=== PATIENT | female | born 1960 | race Native Hawaiian/Other Pacific Islander ===

== ENCOUNTER 2017-04-06 10:57 | Outpatient (CLI) | payer OTHER ==
--- NOTE | 2017-04-07 09:51 | Ultrasound Report ---
ULTRASOUND ABDOMEN COMPLETE: Technique: Transabdominal ultrasound with color Doppler interrogation. History: abdominal pain, liver cyst. Findings: There are numerous small and large cysts scattered throughout the liver parenchyma. The largest cyst measures 10 cm and the left hepatic lobe. No solid liver mass or surface nodularity is appreciated. The gallbladder dimensions are within normal limits without intraluminal stone, wall thickening, or pericholecystic fluid. The CBD is normal caliber. The visualized portions of the pancreas including the head and proximal body are within normal limits. The right kidney measures 10.6 cm. The left kidney measures 10.3 cm. There are a few scattered small simple cysts in the right kidney. No renal mass, large calculus or hydronephrosis. The spleen and aorta are within normal limits. No aneurysmal dilatation is noted. No ascites. The bladder is unremarkable. IMPRESSION: Numerous liver cysts. No suspicious liver mass is identified. Simple right renal cysts. No biliary abnormality appreciated.
== END 2017-04-06 10:58 | disposition home or self-care (01) ==
LOC: US 10:57
PROVIDERS: ATTEND Internal Medicine Gastroenterology
DX: N28.1 Cyst of kidney, acquired (principal); K76.89 Other specified diseases of liver; Q44.6 Cystic disease of liver; R93.3 Abnormal findings on diagnostic imaging of other parts of digestive tract
CPT/HCPCS: 76700

== ENCOUNTER 2017-04-16 11:38 | Day surgery (SDC) | payer OTHER ==
[2017-04-16] MEDS ORDERED: XYLOCAINE MPF 2% ONE (13:00)
[2017-04-16] MEDS ORDERED: NACL 0.9% 1000 ML 1,000 ML IV SCH (13:00)
--- NOTE | 2017-04-16 13:19 | Anesthesia Consultation ---
Anesthesia Consult and Med Hx Date of service: 04/16/17 - Airway Anesthetic Teeth Evaluation: Good ROM Head & Neck: Adequate Mental/Hyoid Distance: Adequate Mallampati Class: Class II Intubation Access Assessment: Probably Good - Pulmonary Exam CTA: Yes - Cardiac Exam Cardiac Exam: RRR - Pre-Operative Health Status ASA Pre-Surgery Classification: ASA2 Proposed Anesthetic Plan: MAC - Pulmonary Hx Smoking: Yes (QUIT 2006) Hx Pneumonia: Yes (12/2014) - Cardiovascular System Hx Hypertension: Yes (15YRS) Hx Cardia Arrhythmia: No - Central Nervous System Hx Neuromuscular Disorder: No Hx Seizures: No CVA: No Hx Psychiatric Problems: Yes (Bipolar D/O, Anxiety) - Gastrointestinal Hx Gastroesophageal Reflux Disease: Yes (Diet related) - Endocrine Hx Liver Disease: Yes (liver cyst) Hx Insulin Dependent Diabetes: No Hx Non-Insulin Dependent Diabetes: No Hx Thyroid Disease: No - Other Systems Hx Cancer: No
--- NOTE | 2017-04-16 13:19 | Anesthesia Day of Surgery ---
Anesthesia Day of Surgery - Day of Surgery Patient Examined: Yes Patient H&P Reviewed: Yes Patient is NPO: Yes
[2017-04-16] MEDS ORDERED: DIPRIVAN 10 MG/ML IV ONE ×2 (14:13)
[2017-04-16] MEDS ORDERED: WATER FOR IRRIG STERILE IR ONE (15:02)
--- NOTE | 2017-04-16 15:02 | Post Anesthesia Evaluation ---
- Post Anesthesia Evaluation Patient Participated: Yes Airway Patent: Yes Stable Respiratory Function: Yes Nausea/Vomiting: No Temp > 96.8F: Yes Pain Manageable: Yes Adequeate Hydration: Yes Anesthesia Complications: No Block Receding Appropriately: Not Applicable Patient on Ventilator: No
--- NOTE | 2017-04-16 15:21 | Discharge Summary ---
Short Stay Discharge Plan Activity: advance as tolerated Weight Bearing Status: Weight Bear as Tolerated Diet: regular Follow up with: ORLANDO SMITH MD [Primary Care Provider] - 7 Days
--- NOTE | 2017-04-16 15:31 | Operative Report ---
Operative Report Operative Report: Date of procedure: 04/16/2017 Procedure: Esophagogastroduodenoscopy multiple mucosal biopsies. Attending physician: Shabbir Kellogg MD Replanting Machine Crew: Shabbir Kellogg MD Indication: Patient is a 57-year-old female who presents with history of gastroesophageal reflux disease with recurrent indigestion and heartburn. Patient also has a history of Sands's esophagus and had an upper endoscopy a little over 2 years ago. This endoscopy is done given patient's symptoms to assess her and also for surveillance of the patient's Sands's esophagus. Consent: Informed consent was obtained after advising the patient and family regarding nature of this procedure, its indications, potential benefits as well as possible complications including but not limited to bleeding perforation and adverse reaction to medication, infection as well as other cardiopulmonary complications. An informed written and verbal consent was then obtained after due opportunity was provided for questions and answers. Monitoring: Patient was monitored continuously with pulse oximetry and electrocardiographic recordings as well as blood pressure recordings. Vital signs remained stable throughout this procedure with no untoward events. Preoperative assessment: Patient was assessed immediately prior to this procedure for capacity to tolerate monitored anesthesia care and moderate sedation as well as general anesthesia. Patient's ASA classification is 2, Mallampati class is 2, Hyomental distance is 3. Instrument: MathZeen video endoscope Medications: Propofol given intravenously in divided doses. For details please refer to anesthesia records. Description of procedure: Patient was placed in the left lateral decubitus position after achieving sedation, the endoscope was introduced into the esophagus under direct vision. It was then advanced beyond the esophagus into the stomach and then beyond the stomach into the duodenum and to the second portion of the duodenum. It was subsequently withdrawn with careful inspection of all mucosal surfaces with the following findings. Findings: The Z line was at 37 cm. It was irregular. Patient had a short segment Sands's esophagus with a Lip of salmon pink mucosa projecting about 2 cm above the gastroesophageal junction. Several biopsies of this were obtained for histopathology. There was erythema and erosions seen in the gastric antrum and body. Biopsies obtained from the antrum for histopathology. The duodenum was normal to second portion. Impression: Irregular Z line. Short segment Sands's esophagus status post biopsies. Gastric antral erythema with erosions. Plan: Continue treatment with high-dose proton pump inhibitors next and follow pathology report to rule out dysplasia in the Sands's segment and also to rule out gastritis from the gastric antral biopsies. Maintain antireflux measures. Additional steps were taken in outpatient follow-up.
[2017-04-16 15:52] VITALS: BP 117/74
== END 2017-04-16 11:39 | disposition home or self-care (01) ==
LOC: GIO 11:38
PROVIDERS: ATTEND Internal Medicine Gastroenterology
DX: K22.70 Barrett's esophagus without dysplasia (principal); K22.8 Other specified diseases of esophagus; K29.50 Unspecified chronic gastritis without bleeding; K31.7 Polyp of stomach and duodenum; I10 Essential (primary) hypertension; F31.9 Bipolar disorder, unspecified; K21.9 Gastro-esophageal reflux disease without esophagitis; Z87.19 Personal history of other diseases of the digestive system
CPT/HCPCS: 43239; 88305; 88342; J2704; J7030

== ENCOUNTER 2017-05-24 09:45 | Day surgery (SDC) | payer OTHER ==
[~2017-05-24 09:45] MED LIST: ANCEF/STERILE WATER 2 GM/20 ML IV NR; HEPARIN SUB-Q NR; NACL 0.9% 1000 ML 1,000 ML IV SCH; PEPCID PO NR; VERSED IV NR
[2017-05-24] MEDS ORDERED: NACL BACTERIOSTATIC INFILTRATI ONE (11:31)
[2017-05-24] MEDS ORDERED: MARCAINE-EPI 0.25%-1:200,000 INFILTRATI ONE ×2 (11:35→13:02)
--- NOTE | 2017-05-24 12:08 | Anesthesia Consultation ---
Anesthesia Consult and Med Hx Date of service: 05/24/17 - Airway Anesthetic Teeth Evaluation: Good, Chipped (top front) ROM Head & Neck: Adequate Mental/Hyoid Distance: Adequate Mallampati Class: Class II Intubation Access Assessment: Probably Good - Pulmonary Exam CTA: Yes - Cardiac Exam Cardiac Exam: RRR - Pre-Operative Health Status ASA Pre-Surgery Classification: ASA3 Proposed Anesthetic Plan: General - Pulmonary Hx Smoking: Yes (QUIT 2006) Hx Pneumonia: Yes (12/2014) - Cardiovascular System Hx Hypertension: Yes (15YRS) Hx Cardia Arrhythmia: No - Central Nervous System Hx Neuromuscular Disorder: No Hx Seizures: No CVA: No Hx Psychiatric Problems: Yes (Bipolar D/O, Anxiety) - Gastrointestinal Hx Gastroesophageal Reflux Disease: Yes (Diet related) - Endocrine Hx Renal Disease: Yes (Polycystic Kidney Dz; Stage II CKD) Hx Liver Disease: Yes (liver cyst) Hx Insulin Dependent Diabetes: No Hx Non-Insulin Dependent Diabetes: No Hx Thyroid Disease: No - Other Systems Hx Cancer: No
--- NOTE | 2017-05-24 12:08 | Anesthesia Day of Surgery ---
Anesthesia Day of Surgery - Day of Surgery Patient Examined: Yes Patient H&P Reviewed: Yes Patient is NPO: Yes
[2017-05-24] MEDS ORDERED: ZOFRAN IV PRN ×2 (12:09→14:20)
[2017-05-24] MEDS ORDERED: NEOSTIGMINE ONE (12:31)
[2017-05-24] MEDS ORDERED: DECADRON ONE (12:31)
[2017-05-24] MEDS ORDERED: ROBINUL ONE ×2 (12:31)
[2017-05-24] MEDS ORDERED: ZOFRAN ONE ×2 (12:32→12:52)
[2017-05-24] MEDS ORDERED: ePHEDrine SULFATE ONE (12:52)
[2017-05-24] MEDS ORDERED: NACL 0.9% IR ONE (13:02)
[2017-05-24] MEDS ORDERED: DILAUDID ONE (13:11)
[2017-05-24] MEDS ORDERED: TORADOL ONE (13:43)
--- NOTE | 2017-05-24 14:03 | Short Stay Summary ---
Short Stay Documentation Date of service: 05/24/17 - History H&P: obtained from office - Allergies and Medications Current Medications: Allergies ELISABETH Inhibitors Adverse Reaction (Verified 08/25/15 11:08) Shortness of Breath Home Medications Medication Instructions Recorded Confirmed Last Taken Type Diazepam Tab [Valium] 2 mg PO HS 06/21/15 05/24/17 05/23/17 History Losartan/Hydrochlorothiazide 1 tab PO QDAY 06/21/15 05/24/17 05/24/17 07:45 History [Hyzaar 100-25 TAB] Meloxicam [Mobic] 15 mg PO QDAY PRN 04/13/17 05/24/17 05/20/17 History lamoTRIgine [LaMICtal] 150 mg PO HS 04/13/17 05/24/17 05/24/17 07:45 History Omeprazole 40 mg PO DAILY 05/24/17 05/24/17 05/23/17 History Active Medications Cefazolin Sodium (Ancef/Sterile Water 2 Gm/20 Ml) 2 gm IV PREOP NR Stop: 05/24/17 23:59 Famotidine (Pepcid) 20 mg PO PREOP NR Stop: 05/24/17 23:59 Last Admin: 05/24/17 11:37 Dose: 20 mg Heparin Sodium (Porcine) (Heparin) 5,000 unit SUB-Q PREOP NR Stop: 05/24/17 23:59 Last Admin: 05/24/17 12:09 Dose: 5,000 unit Hydromorphone HCl (Dilaudid) 0.5 mg IV Q10MIN PRN PRN Reason: Pain , Severe (7-10) Stop: 05/27/17 12:10 Sodium Chloride (Nacl 0.9% 1000 Ml) 1,000 mls @ 75 mls/hr IV DIRECT TERESA Last Admin: 05/24/17 11:50 Dose: 75 mls/hr Midazolam HCl (Versed) 2 mg IV PREOP NR Stop: 05/24/17 23:59 Last Admin: 05/24/17 12:07 Dose: 2 mg - Brief post op/procedure progress note Date of procedure: 05/24/17 Pre-op diagnosis: Recurrent incisional hernia Post-op diagnosis: same Procedure: Laparoscopic recurrent incisional hernia repair with mesh; explantation of mesh Anesthesia: GETA, local Surgeon: TONIE MUÑOZ Estimated blood loss: none Pathology: none Condition: stable - Disposition Condition at discharge: Good Disposition: DC-01 TO HOME OR SELFCARE Short Stay Discharge Plan Activity: no restrictions Diet: regular Wound: remove dressing (05/26/17 and then may shower) Special Instructions: other (Wear abdominal binder at all times except showering ) Follow up with: ORLANDO SMITH MD [Primary Care Provider] - 7 Days TONIE MUÑOZ MD [Staff Physician] - 7 Days Prescriptions: Ketorolac [Toradol] 10 mg PO Q6H PRN #20 tablet PRN Reason: Pain oxyCODONE /ACETAMINOPHEN [Percocet 5/325] 1 - 2 tab PO Q4HR PRN #40 tab PRN Reason: Pain Promethazine [Phenergan TAB] 25 mg PO Q6HR PRN #10 tab PRN Reason: Nausea
--- NOTE | 2017-05-24 14:11 | Operative Report ---
Operative Report Operative Report: OPERATIVE REPORT PRE and POST DX: Recurrent incisional hernia Procedure: Laparoscopic recurrent incisional hernia repair with mesh; Explanation of old mesh Surgeon: Dr. Cabrera Anesthesia: General and local EBL: minimal Drains: None Implants: Mesh Findings: As above; plus polycystic liver Complications: None Indications: 57 y/o Female with a recurrent incisional hernia and presents for repair. Procedure: General anesthesia was achieved. Her abdomen was prepped and draped in the standard fashion. Prior to any incision the area was injected with marcaine. A left lateral 5mm incision was made and using a Veress needle technique the abdomen was insufflated to 15mm Hg of pressure. The other ports were placed under direct vision which included a left subcostal 10mm port and a left lower quadrant 5mm port. There was some omentum adhered to the small piece of mesh which was sitting inside the recurrent hernia defect. The omentum was taken down with sharp and cautery dissection. The old mesh was going to interfere with my repair so I explanted it and removed it from the abdominal cavity. I reduced the abdominal pressure to 10mm Hg pressure and then reapproximated the fascia with 0 vicryl using a suture passer. Then I placed a 8x6 inch Parietex mesh and positioned it so that there was a minimum of 5cm over lap from the edge of the hernia and the edge of the mesh. It was anchored in place with a Protacker. Once the mesh was in good position I removed the ports under direct vision and then the CO2 as there was no bleeding from the ports. The ports were closed with 4-0 vicryl, steri strip and bandaids. She was wrapped with an abdominal binder prior to extubation. Dr. Wilbur Cabrera 05/24/2017 2:11PM
[2017-05-24] MEDS: DILAUDID IV PRN ×2 (14:20→14:30)
[2017-05-24] MEDS ORDERED: SUBLIMAZE ONE (14:23)
[2017-05-24] MEDS ORDERED: DIPRIVAN 10 MG/ML IV ONE (14:23)
[2017-05-24] MEDS ORDERED: XYLOCAINE MPF 2% ONE (14:23)
[2017-05-24] MEDS ORDERED: ZEMURON IV ONE (14:23)
[2017-05-24] MEDS ORDERED: NORCO 5/325 PO PRN (14:50)
[2017-05-24] MEDS ORDERED: TRANSDERM-SCOP TD ONE (18:31)
[2017-05-24 18:47] VITALS: BP 139/88
== END 2017-05-24 18:55 | disposition home or self-care (01) ==
LOC: OR 09:45
PROVIDERS: ATTEND Surgery
DX: K43.2 Incisional hernia without obstruction or gangrene (principal); K76.89 Other specified diseases of liver; F31.9 Bipolar disorder, unspecified; F41.9 Anxiety disorder, unspecified; K21.9 Gastro-esophageal reflux disease without esophagitis; M19.90 Unspecified osteoarthritis, unspecified site; I12.9 Hypertensive chronic kidney disease with stage 1 through stage 4 chronic kidney disease, or unspecified chronic kidney disease; N18.2 Chronic kidney disease, stage 2 (mild); G43.109 Migraine with aura, not intractable, without status migrainosus; Z87.448 Personal history of other diseases of urinary system; Z87.01 Personal history of pneumonia (recurrent); Z87.891 Personal history of nicotine dependence; Z98.890 Other specified postprocedural states; Z79.899 Other long term (current) drug therapy; Z88.8 Allergy status to other drugs, medicaments and biological substances; Z83.3 Family history of diabetes mellitus
CPT/HCPCS: 36415; 49656; 84132; C1781; J0690; J1100; J1170; J1644; J1885; J2250; J2405; J2704; J2710; J3010; J7030